=== PATIENT | male | born 1985 | race Caucasian/White ===

== ENCOUNTER 2017-11-27 19:35 | Emergency (ER) | payer MEDICAID ==
[2017-11-27 19:45] VITALS: O2SAT 98
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
[2017-11-27 23:07] VITALS: BP 134/85; PULSE 82; RESP 18; TEMP 97.4
== END 2017-11-27 23:23 | disposition home or self-care (01) ==
LOC: C.ER 19:35
DX: F20.9 Schizophrenia, unspecified (principal); F41.9 Anxiety disorder, unspecified

== ENCOUNTER 2018-06-23 04:15 | Emergency (ER) | payer MEDICAID ==
[2018-06-23 04:30] VITALS: BP 143/87; PULSE 84; RESP 16; TEMP 98.5; O2SAT 98
[2018-06-23] MEDS ORDERED: Alum-Mag Hydrox-Simethicone Susp (30 mL) PO STA (04:42)
--- NOTE | 2018-06-23 04:44 | C.PDOC ---
History Of Present Illness 32 year old male paranoid schizophrenic presents to the ER complaining of epigastric discomfort that began tonight. Patient admits to drinking tonight. Denies fever, nausea, or vomiting. Time Seen by Provider: 06/23/18 04:39 Chief Complaint (Nursing): Abdominal Pain History Per: Patient History/Exam Limitations: no limitations Onset/Duration Of Symptoms: Hrs Current Symptoms Are (Timing): Still Present Location Of Pain/Discomfort: Epigastric Radiation Of Pain To:: None Quality Of Discomfort: Unable To Describe Associated Symptoms: denies: Fever, Nausea, Vomiting Exacerbating Factors: None Alleviating Factors: None Recent travel outside of the [place]: No Past Medical History Reviewed: Historical Data, Nursing Documentation, Vital Signs Vital Signs: Last Vital Signs Temp 98.5 F 06/23/18 04:21 Pulse 84 06/23/18 04:21 Resp 16 06/23/18 04:21 BP 143/87 06/23/18 04:21 Pulse Ox 98 06/23/18 04:43 - Medical History PMH: Schizophrenia (PARANOID TYPEE) Denies: Diabetes, Hepatitis, HIV, HTN, Seizures, Sexually Transmitted Disease Family History: States: Unknown Family Hx - Social History Hx Tobacco Use: No Hx Alcohol Use: No Hx Substance Use: No - Immunization History Hx Tetanus Toxoid Vaccination: No Hx Influenza Vaccination: No Hx Pneumococcal Vaccination: No Review Of Systems Constitutional: Negative for: Fever, Chills Cardiovascular: Negative for: Chest Pain, Palpitations Respiratory: Negative for: Cough, Shortness of Breath Gastrointestinal: Positive for: Abdominal Pain. Negative for: Nausea, Vomiting Physical Exam - Physical Exam Appears: Non-toxic, Other (Anxious) Skin: Normal Color, Warm, Dry Head: Atraumatic, Normacephalic Eye(s): bilateral: Normal Inspection Oral Mucosa: Moist Chest: Symmetrical, No Tenderness Cardiovascular: Rhythm Regular Respiratory: Normal Breath Sounds, No Rales, No Rhonchi, No Wheezing Gastrointestinal/Abdominal: Soft, No Tenderness Extremity: Normal ROM (x4) Neurological/Psych: Oriented x3, Normal Speech Gait: Steady ED Course And Treatment O2 Sat by Pulse Oximetry: 98 (Room air) Pulse Ox Interpretation: Normal Progress Note: Pepcid and maalox administered. Medical Decision Making Medical Decision Making: paranoid schizophrenia, alcohol abuse benign belly no s/s of pancreatitis or acute abd maalox and opt f/u. Disposition Doctor Will See Patient In The: Office Counseled Patient/Family Regarding: Studies Performed, Diagnosis - Disposition Referrals: Shaik Beck MD [Staff Provider] - Disposition: HOME/ ROUTINE Disposition Time: 04:43 Condition: GOOD Additional Instructions: Pepcid 20 mg en la noche para bajar acidez del estomago Maalox 30 cc (nalini cucharada) 4-5 veces al celina magda necessario Sigue en [facility] magda necessario. Instructions: Gastritis Forms: [employer] (Nigerien) - Clinical Impression Clinical Impression: Schizophrenia, Anxiety, Alcohol abuse - Scribe Statement The provider has reviewed the documentation as recorded by the Scribe Krishan Orozco All medical record entries made by the Scribe were at my direction and personally dictated by me. I have reviewed the chart and agree that the record accurately reflects my personal performance of the history, physical exam, medical decision making, and the department course for this patient. I have also personally directed, reviewed, and agree with the discharge instructions and disposition.
[2018-06-23] MEDS ORDERED: Alum-Mag Hydrox-Simethicone Susp (30 mL) ONE (04:52)
== END 2018-06-23 05:01 | disposition home or self-care (01) ==
LOC: C.ER 04:15
DX: F20.9 Schizophrenia, unspecified (principal); F41.9 Anxiety disorder, unspecified; F10.10 Alcohol abuse, uncomplicated; Y90.9 Presence of alcohol in blood, level not specified